=== PATIENT | male | born 1950 | race Caucasian/White ===

== ENCOUNTER 2018-06-23 09:19 | Outpatient (CLI) | payer MEDICARE, BC, SELFPAY ==
[2018-06-24 11:22] LABS: PSA, Diagnostic 8.5 ng/ml (0-6.5)
== END 2018-06-23 09:39 ==
PROVIDERS: PCP Family Medicine; Visit Provider Urology
DX: R97.20 Elevated prostate specific antigen [PSA] (principal)
CPT/HCPCS: 36415; 84153

== ENCOUNTER → 2018-07-01 09:16 | Outpatient (BNVA) | payer MEDICARE, BC, SELFPAY | PROVIDERS: PCP Family Medicine; Visit Provider Urology | DX: R97.20 Elevated prostate specific antigen [PSA] (principal); Z12.5 Encounter for screening for malignant neoplasm of prostate | CPT/HCPCS: 99213 ==

== ENCOUNTER 2019-01-09 10:38 | Outpatient (CLI) | payer MEDICARE, BC, SELFPAY | END 2019-01-09 10:58 | PROVIDERS: PCP Family Medicine; Visit Provider Urology | DX: R97.20 Elevated prostate specific antigen [PSA] (principal) | CPT/HCPCS: 36415; 84153 ==

== ENCOUNTER 2019-08-25 04:12 | Outpatient (CLI) | payer MEDICARE, BC, SELFPAY ==
[2019-08-28 10:18] LABS: PSA, Diagnostic 12.9 ng/mL (0.0-6.5)
== END 2019-08-25 04:32 ==
PROVIDERS: PCP Family Medicine; Visit Provider Urology
DX: R97.20 Elevated prostate specific antigen [PSA] (principal)
CPT/HCPCS: 36415; 84153

== ENCOUNTER → 2019-08-29 09:28 | Outpatient (BNVA) | payer MEDICARE, BC, SELFPAY | PROVIDERS: PCP Family Medicine; Visit Provider Urology | DX: R97.20 Elevated prostate specific antigen [PSA] (principal) | CPT/HCPCS: 99213 ==

== ENCOUNTER 2020-08-23 04:04 | Outpatient (CLI) | payer MEDICARE, SELFPAY ==
[2020-08-23 12:01] LABS: ALT 20 U/L (16-63); AST 15 U/L (15-37); Albumin 3.9 g/dL (3.4-5.0); Alkaline Phosphatase 70 U/L (46-116); Anion Gap 8.5 mmol/L (3-11); BUN 23 mg/dL (7-18); Bilirubin, Total 1.4 mg/dL (0.2-1.0); CO2 26.5 mmol/L (21.0-32.0); CREATININE 0.8 mg/dL (0.70-1.30); Calcium 8.5 mg/dL (8.5-10.1); Chloride 108 mmol/L (98-107); Glucose 92 mg/dL (74-106); Potassium 4.1 mmol/L (3.5-5.1); Sodium 143 mmol/L (136-145); Total Protein 6.6 g/dL (6.4-8.2)
[2020-08-23 22:20] LABS: PSA, Diagnostic 8.4 ng/mL (0.0-6.5)
== END 2020-08-23 04:05 | disposition home or self-care (01) ==
LOC: LBO 04:04
PROVIDERS: Urology; PCP Family Medicine; Visit Provider Family Medicine
DX: E78.5 Hyperlipidemia, unspecified; R97.20 Elevated prostate specific antigen [PSA]
CPT/HCPCS: 36415; 80053; 84153

== ENCOUNTER → 2020-08-30 09:48 | Outpatient (BNVA) | payer MEDICARE, BC, SELFPAY | PROVIDERS: PCP Family Medicine; Referring Provider Family Medicine; Visit Provider Urology | DX: R39.11 Hesitancy of micturition (principal); R97.20 Elevated prostate specific antigen [PSA]; Z79.899 Other long term (current) drug therapy | CPT/HCPCS: 99213 ==

== ENCOUNTER 2021-08-19 01:56 | Outpatient (CLI) | payer MEDICARE, SELFPAY ==
[2021-08-19 22:45] LABS: PSA, Diagnostic 10.6 ng/mL (<=6.5)
== END 2021-08-19 01:57 | disposition home or self-care (01) ==
LOC: LBO 01:56
PROVIDERS: PCP Family Medicine; Visit Provider Urology
DX: R97.20 Elevated prostate specific antigen [PSA] (principal)
CPT/HCPCS: 36415; 84153

== ENCOUNTER → 2021-08-29 09:44 | Outpatient (BNVA) | payer MEDICARE, SELFPAY | PROVIDERS: PCP Family Medicine; Referring Provider Family Medicine; Visit Provider Urology | DX: R39.11 Hesitancy of micturition (principal); R97.20 Elevated prostate specific antigen [PSA] | CPT/HCPCS: 99213 ==

== ENCOUNTER 2022-08-21 01:08 | Outpatient (CLI) | payer MEDICARE, SELFPAY ==
[2022-08-21 21:31] LABS: PSA, Diagnostic 8.7 ng/mL (<=6.5)
== END 2022-08-21 01:09 | disposition home or self-care (01) ==
LOC: LBO 01:09
PROVIDERS: PCP Family Medicine; Visit Provider Urology
DX: R97.20 Elevated prostate specific antigen [PSA] (principal)
CPT/HCPCS: 36415; 84153

== ENCOUNTER → 2022-08-28 09:41 | Outpatient (BNVA) | payer MEDICARE, SELFPAY | PROVIDERS: PCP Family Medicine; Visit Provider Urology | DX: R97.20 Elevated prostate specific antigen [PSA] (principal) | CPT/HCPCS: 99213 ==

== ENCOUNTER 2023-08-17 15:37 | Outpatient (CLI) | payer MEDICARE, SELFPAY ==
[2023-08-17 23:26] LABS: PSA, Diagnostic 15.5 ng/mL (<=6.5)
== END 2023-08-17 15:38 | disposition home or self-care (01) ==
LOC: LBO 08-19 15:37
PROVIDERS: PCP Family Medicine; Visit Provider Urology
DX: R97.20 Elevated prostate specific antigen [PSA] (principal)
CPT/HCPCS: 36415; 84153

== ENCOUNTER → 2023-08-27 10:14 | Outpatient (BNVA) | payer MEDICARE, SELFPAY | PROVIDERS: PCP Family Medicine; Visit Provider Urology ==

== ENCOUNTER 2023-08-27 13:09 | Outpatient (CLI) | payer MEDICARE, SELFPAY ==
[2023-08-27 20:46] LABS: PSA, Diagnostic 12.4 ng/mL (<=6.5)
== END 2023-08-27 13:10 | disposition home or self-care (01) ==
LOC: LBO 13:10
PROVIDERS: PCP Family Medicine; Visit Provider Urology
DX: R97.20 Elevated prostate specific antigen [PSA] (principal); R39.11 Hesitancy of micturition
CPT/HCPCS: 36415; 99213; 84153

== ENCOUNTER 2024-02-15 02:27 | Outpatient (CLI) | payer MEDICARE, SELFPAY ==
[2024-02-15 21:57] LABS: PSA, Diagnostic 11.7 ng/mL (<=6.5)
== END 2024-02-15 02:28 | disposition home or self-care (01) ==
LOC: LBO 02:27
PROVIDERS: PCP Family Medicine; Visit Provider Urology
DX: R97.20 Elevated prostate specific antigen [PSA] (principal)
CPT/HCPCS: 36415; 84153

== ENCOUNTER → 2024-02-22 09:46 | Outpatient (BNVA) | payer MEDICARE, SELFPAY | PROVIDERS: PCP Family Medicine; Referring Provider Family Medicine; Visit Provider Urology | DX: N40.0 Benign prostatic hyperplasia without lower urinary tract symptoms (principal); R97.20 Elevated prostate specific antigen [PSA] | CPT/HCPCS: 99213 ==

== ENCOUNTER 2024-08-15 02:15 | Outpatient (CLI) | payer MEDICARE, SELFPAY ==
[2024-08-15 19:01] LABS: PSA, Diagnostic 10.9 ng/mL (<=6.5)
== END 2024-08-15 02:16 | disposition home or self-care (01) ==
LOC: LBO 02:15
PROVIDERS: PCP Family Medicine; Visit Provider Urology
DX: R97.20 Elevated prostate specific antigen [PSA] (principal)
CPT/HCPCS: 36415; 84153

== ENCOUNTER → 2024-08-22 09:47 | Outpatient (BNVA) | payer MEDICARE, SELFPAY | PROVIDERS: PCP Family Medicine; Referring Provider Family Medicine; Visit Provider Urology | DX: R97.20 Elevated prostate specific antigen [PSA] (principal) | CPT/HCPCS: 99213 ==

== ENCOUNTER 2025-02-16 02:25 | Outpatient (CLI) | payer MEDICARE, SELFPAY ==
[2025-02-16 14:35] LABS: ALT 12 U/L (10-49); AST 20 U/L (<34); Albumin 4.1 g/dL (3.2-5.0); Alkaline Phosphatase 73 U/L (46-116); Anion Gap 8.3 mmol/L (3-11); BUN 22 mg/dL (9-23); Bilirubin, Total 1.30 mg/dL (0.2-1.2); CO2 29.7 mmol/L (20.0-31.0); Calcium 8.9 mg/dL (8.3-10.6); Chloride 108 mmol/L (98-107); Cholesterol 178 mg/dL (<200); Glucose 92 mg/dL (74-106); HDL Cholesterol 65 mg/dL (>40); Potassium 3.8 mmol/L (3.5-5.1); Sodium 146 mmol/L (136-145); Total Protein 6.5 g/dL (5.7-8.2)
[2025-02-16 18:16] LABS: PSA, Diagnostic 15.2 ng/mL (<=6.5)
== END 2025-02-16 02:26 | disposition home or self-care (01) ==
PROVIDERS: Urology; PCP Family Medicine; Visit Provider Family Medicine
DX: R97.20 Elevated prostate specific antigen [PSA] (principal); E78.5 Hyperlipidemia, unspecified
CPT/HCPCS: 36415; 80053; 80061; 84153

== ENCOUNTER → 2025-02-26 09:15 | Outpatient (BNVA) | payer MEDICARE, SELFPAY | PROVIDERS: PCP Family Medicine; Referring Provider Family Medicine; Visit Provider Urology | DX: R97.20 Elevated prostate specific antigen [PSA] (principal) | CPT/HCPCS: 99213 ==